=== PATIENT | female | born 1985 | race Caucasian/White ===

== ENCOUNTER 2016-08-10 14:29 | Outpatient (CLI) | payer BC | END 2016-08-10 14:30 | disposition home or self-care (01) | DX: O26.21 Pregnancy care for patient with recurrent pregnancy loss, first trimester (principal) ==

== ENCOUNTER 2016-08-12 15:00 | Outpatient (CLI) | payer BC | END 2016-08-12 15:01 | disposition home or self-care (01) | DX: O26.21 Pregnancy care for patient with recurrent pregnancy loss, first trimester (principal) ==

== ENCOUNTER 2016-08-18 12:37 | Outpatient (CLI) | payer BC | END 2016-08-18 12:38 | disposition home or self-care (01) | DX: N91.2 Amenorrhea, unspecified (principal) ==

== ENCOUNTER 2016-08-24 16:53 | Outpatient (CLI) | payer BC | END 2016-08-24 16:54 | disposition home or self-care (01) | DX: N96 Recurrent pregnancy loss (principal) ==

== ENCOUNTER 2016-08-28 10:48 | Emergency (ER) | payer BC ==
[2016-08-28] MEDS ORDERED: HYDROmorphone 1 MG/ML SYRINGE ONE (13:01)
[2016-08-28] MEDS ORDERED: ONDANSETRON 4 MG/2 ML VIAL ONE (13:01)
[2016-08-28] MEDS ORDERED: metroNIDAZOLE 250 MG TABLET PO STA (13:28)
[2016-08-28] MEDS ORDERED: FLUCONAZOLE 100 MG TABLET PO STA (13:28)
[2016-08-28] MEDS ORDERED: metroNIDAZOLE 250 MG TABLET PO ONE (13:40)
[2016-08-28] MEDS ORDERED: FLUCONAZOLE 100 MG TABLET ONE (13:40)
== END 2016-08-28 14:04 | disposition home or self-care (01) ==
DX: O20.9 Hemorrhage in early pregnancy, unspecified (principal); O23.591 Infection of other part of genital tract in pregnancy, first trimester; N76.0 Acute vaginitis; B96.89 Other specified bacterial agents as the cause of diseases classified elsewhere; Z3A.01 Less than 8 weeks gestation of pregnancy
CPT/HCPCS: 36415; 81003; 84702; 87210; 87491; 87591; 99283; A9270; J1170

== ENCOUNTER 2016-09-06 14:52 | Outpatient (CLI) | payer BC | END 2016-09-06 14:53 | disposition home or self-care (01) | DX: Z13.29 Encounter for screening for other suspected endocrine disorder (principal); Z36 Encounter for antenatal screening of mother ==

== ENCOUNTER 2016-10-08 16:16 | Outpatient (CLI) | payer BC | END 2016-10-08 16:17 | disposition home or self-care (01) | DX: Z36 Encounter for antenatal screening of mother (principal) ==

== ENCOUNTER 2016-10-13 14:16 | Outpatient (CLI) | payer SELFPAY | END 2016-10-13 14:17 | disposition home or self-care (01) | DX: Z36 Encounter for antenatal screening of mother (principal) ==

== ENCOUNTER 2017-01-17 08:18 | Outpatient (CLI) | payer BC ==
--- NOTE | 2017-01-17 13:07 | Ultrasound Report ---
ULTRASOUND RIGHT MID BACK: 01/17/2017 CLINICAL INDICATION: Palpable abnormality. TECHNIQUE: Real-time scanning was performed with career services representative static images obtained. FINDINGS: Ultrasound of the palpable abnormality identified by the patient was performed. At this s ite, there is a 4.6 x 2.6 x 1.4 cm lipoma. No sonographically suspicious findings are identified. IMPRESSION: SIMPLE LIPOMA, CORRELATING WITH THE PALPABLE ABNORMALITY. JOB #: [id number] EXT JOB #:
== END 2017-01-17 08:19 | disposition home or self-care (01) ==
LOC: DI 08:18
PROVIDERS: ATTEND Orthopaedic Surgery
DX: D17.1 Benign lipomatous neoplasm of skin and subcutaneous tissue of trunk (principal)
CPT/HCPCS: 76604